=== PATIENT | male | born 1960 | race Caucasian/White ===

== ENCOUNTER → 2019-02-20 07:40 | Outpatient (CLI) | payer BC, SELFPAY ==
--- NOTE | 2019-02-20 07:46 | CT_ITS ---
STUDY: CT ABDOMEN AND PELVIS WITH CONTRAST REASON FOR EXAM: Male, 58 years old. Abdominal pain. RADIATION DOSAGE (If Supplied By Facility): CTDIvol = ( 14.61 ) mGy, DLP = ( 1033.76 ) mGycm TECHNIQUE: Transaxial images were obtained from the dome of the diaphragm to the symphysis pubis with oral contrast. 100 IV/Oral Isovue 300 was administered. Sagittal and coronal images were reconstructed. Individualized dose optimization techniques were used for this CT. COMPARISON: None. FINDINGS: The visualized lung bases are unremarkable. The visualized portions of the heart are within normal limits. Normal liver. The gallbladder is contracted with a single gallstone. Normal spleen. Normal pancreas. Normal bilateral adrenal glands. Normal right kidney. Normal left kidney. Normal visualized stomach. Normal small intestine. There are multiple colonic diverticula consistent with diverticulosis. The appendix is visualized and appears normal. Normal abdominal aorta. Normal inferior vena cava. Normal retroperitoneum. Normal urinary bladder. There is enlargement of the prostate gland. Normal abdominal wall. Normal osseous structures. CT/Abdomen/Pelvis WITH Contrast IMPRESSION: Cholelithiasis. Diverticulosis. Electronically Signed: Jaspal Dumont MD at 16:59 EDT , Service support ,
== END ==
DX: R10.9 Unspecified abdominal pain (principal)
CPT/HCPCS: 74177; Q9967

== ENCOUNTER → 2020-02-11 09:10 | Outpatient (CLI) | payer BC, SELFPAY ==
--- NOTE | 2020-02-11 09:29 | NM_ITS ---
CLINICAL: 59-year-old male with reported history of right upper quadrant abdominal pain. RADIONUCLIDE HEPATOBILIARY SCINTIGRAPHY COMPARISON: None available FINDINGS: Following the intravenous administration of 5.3 mCi of 99m Tc Mebrofenin, hepatobiliary images reveal: 1. Relatively prompt and homogeneous radiopharmaceutical concentration is noted by a normal sized liver. No parenchymal defects are identified. 2. Gallbladder activity is identified at 100 minutes post radiopharmaceutical administration. 3. Small intestinal tract is observed at 15 minutes following tracer injection. 4. Washout of the radiopharmaceutical by the hepatic parenchyma appears qualitatively normal. Cholecystokinin (0.02 ug/kg) was administered intravenously over a 30-minute period. The post CCK gallbladder ejection fraction calculated at 21 minutes following Cholecystokinin administration was noted to be 77.0 % (normal greater than 35%). During 30 minutes of post CCK imaging, there is no scintigraphic evidence of reflux of the radiotracer into the common hepatic duct or refilling of the gallbladder. NM/Hepatobilliary Img w/Pharm Int IMPRESSION: 1. A gallbladder ejection fraction calculated to be greater than 35% following the administration of Cholecystokinin makes the probability of functional hepatobiliary disease (gallbladder and/or sphincter of Oddi dyskinesia) and/or organic hepatobiliary disease (chronic acalculous cholecystitis and/or cystic duct syndrome) to be low. (Sergei Brand et al, Journal of Nuclear Medicine 32:1695, 1991). Electronically Signed: Roberto Viera DO at 21:58 EDT Tel , Service support ,
== END ==
DX: R10.11 Right upper quadrant pain (principal)
CPT/HCPCS: 78227; A9537; J2805

== ENCOUNTER → 2020-06-10 10:18 | Outpatient (CLI) | payer BC, SELFPAY | DX: R53.83 Other fatigue (principal); D75.1 Secondary polycythemia | CPT/HCPCS: 95806 ==

== ENCOUNTER 2024-02-16 07:02 | Day surgery (SDC) | payer BC, SELFPAY ==
[2024-02-16] VITALS (7 sets, daily range): BP systolic 96–135; BP diastolic 46–80; PULSE 77–89; RESP 16; TEMP 36.2–36.9; O2SAT 93–97; BMI 27.0
[2024-02-16] MEDS: Lactated Ringers 1,000 ML 15 ML IV (07:47)
--- NOTE | 2024-02-16 08:00 | IMM_PTH ---
PATIENT: CONSUELO FERRER [place] [facility] [id number] AGE/SX: 63/M ROOM: RE02/16/[address]: Dr. Nikita Vazquez MD : 1960 BED: DIS: 02/16/2024 SPEC #: [id number] RECD: 02/16/24 14:28 STATUS: MARINA REMary Ann #: [id number] FLAVIA: 02/16/24 08:[address]: Nikita Vazquez DEPT: IMMUNOHISTOCHEMISTRY RECD BY: Robb Arevalo ENTERED: 02/16/24 14:30 SP TYPE: IMMUNO OTHR DR: Kaela Lezama, SEQUINS SPOOLER-C Tissues: A - Stomach, NOS Procedures: H Pylori (initial) PHYSICIAN & INSTITUTION [place] [id number] SPECIMEN INFORMATION: Tissue Source: A- Antrum Clinical Info: Rectal bleeding, Bloating, Diverticular disease, Heartburn symptom Specimen Number: [id number] CPT code: 33663 METHODOLOGY: Deparaffinized sections of prefer/formalin-fixed tissue or PAP/DQ stained slides are incubated with monoclonal/polyclonal antibodies/oligonucleotide probes. Localization is made via biotin free immunoperoxidase method. Appropriate controls are performed and reacted as expected. Results on target cell population are indicated in the following table: RESULTS: ANTIBODY / CLONE RESULT Block A H Pylori (polyclonal) negative These tests were developed and their performance characteristics determined by [facility]. They may not have been cleared or approved by the U.S. Food and Drug Administration. The FDA has determined that such clearance or approval is not necessary. The above immunohistochemical/dualISH markers are ordered and reviewed by the Pathologist. INTERPRETATION: A. Antrum, biopsy: Negative for Helicobacter pylori organisms. KIANA/ 02/17/24
--- NOTE | 2024-02-16 08:00 | EGD_PTH ---
PATIENT: CONSUELO FERRER LOC: [facility] [place] U#:[id number] AGE/SX: 63/M ROOM: RE02/16/[address]: Dr. Nikita Vazquez MD : 1960 BED: DIS: 02/16/2024 SPEC #: [id number] RECD: 02/16/24 09:38 STATUS: MARINA CHANDLER #: [id number] FLAVIA: 02/16/24 08:[address]: Nikita Vazquez DEPT: SURGICAL PATHOLOGY RECD BY: Jessica Camejo ENTERED: 02/16/24 13:28 SP TYPE: EGD BIOPSY OTHR DR: Kaela Lezama, MID WIFE-C Tissues: A - Gastric mucous membrane B - Esophagus, NOS C - Esophagus, NOS D - Gastric mucous membrane E - Gastric fundus F - Esophagus, NOS G - Esophagus, NOS Procedures: Special Stain Group II Surgery Specimen Level IV Alcian Blue/PAS (control) HEADER OPERATION: Colonoscopy, EGD biopsy, Polypectomy PRE-OP DIAGNOSIS: Rectal bleeding, Bloating, Diverticular disease, Heartburn symptom TISSUE SUBMITTED: A- Antrum biopsy, B- Greater curvature polyp biopsy, C- Greater curvature mucosa biopsy, D- Gastric body polyps x3, E- Fundus polyp biopsy, F- Gastroesophageal junction mass biopsy, G- Esophageal mucosa biopsy MICROSCOPIC DIAGNOSIS A. Gastric antrum, biopsy: Chronic gastritis. See comment. B. Greater curvature of stomach polyp, biopsy: Polypoid fragment of benign gastric mucosa. See comment. C. Greater curvature of stomach biopsy: Chronic gastritis. D. Gastric body polyps, biopsy: Fragments of fundic gland polyps E. Gastric fundus polyp, biopsy: Chronic gastritis. See comment. F. Gastroesophageal junction mass, biopsy: Gastroesophageal junctional mucosa with chronic inflammation. No evidence of goblet cell metaplasia. No evidence of malignancy. See comment. G. Esophageal mucosa, biopsy: Fragments of benign squamous mucosa with focal changes of reflux. AM/mr 02/17/24 COMMENT A. The results of immunohistochemistry for Helicobacter pylori will be reported separately ([id number]). B. No features of fundic gland polyp are seen and there is no evidence of hyperplasia. Clinical correlation is suggested. E. No evidence of fundic gland polyp are identified. Clinical correlation is suggested. F. Alcian blue/PAS stain with matched control supports the above diagnosis. Case has been reviewed in consultation with Dr. Moreira who concurs with the above diagnosis. IDC:SJ MICROSCOPIC DESCRIPTION Slides are reviewed. GROSS DESCRIPTION A. Received in fixative is one container labeled with the patient's name and designated Antrum biopsy. The specimen consists of one irregular fragment of light willett soft tissue that measures 0.5 x 0.4 x 0.1 cm. The specimen is totally submitted in one cassette. B. Received in fixative is one container labeled with the patient's name and designated Greater curvature polyp biopsy. The specimen consists of one irregular fragment of light willett soft tissue that measures 0.4 x 0.3 x 0.1 cm. The specimen is totally submitted in one cassette. C. Received in fixative is one container labeled with the patient's name and designated Greater curvature mucosa biopsy. The specimen consists of one irregular fragment of light willett soft tissue that measures 0.4 x 0.3 x 0.1 cm. The specimen is totally submitted in one cassette. D. Received in fixative is one container labeled with the patient's name and designated Gastric body polyps. The specimen consists of multiple irregular fragments of light willett soft tissue that in aggregate measure 1.8 x 0.5 x 0.3 cm. The specimen is totally submitted in one cassette. E. Received in fixative is one container labeled with the patient's name and designated Fundus polyp biopsy. The specimen consists of one irregular fragment of light willett soft tissue that measures 0.4 x 0.4 x 0.1 cm. The specimen is totally submitted in one cassette. F. Received in fixative is one container labeled with the patient's name and designated GE junction mass biopsy. The specimen consists of multiple irregular fragments of light willett soft tissue that in aggregate measure 1.0 x 0.3 x 0.1 cm. The specimen is totally submitted in one cassette. G. Received in fixative is one container labeled with the patient's name and designated Esophageal mucosa biopsy. The specimen consists of two irregular fragments of light willett soft tissue that in aggregate measure 0.6 x 0.3 x 0.1 cm. The specimen is totally submitted in one cassette. NORIS/ 02/16/24 TC:3 CPT: 46320d3,91646
--- NOTE | 2024-02-16 08:13 | HP.PCM_ITS ---
History and Physical Date of Admission: 02/16/24 Date of Service: 12/27/23 MR#: [id number] Acct: [id number] Name: CONSUELO CORREA Rep #: [id number] : 1960 Provider: Dr. 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 Nikita Vazquez MD) Abnormal CT of the abdomen Anxiety Asthma Back problem Bloating Diverticular disease Epigastric pain Erectile dysfunction Gastroparesis Rectal bleeding SOB (shortness of breath) Surgical History (Updated 12/27/23 @ 09:02 by Shira Mejia) S/P hernia repair S/P laparoscopic cholecystectomy Family History (Updated 12/27/23 @ 09:02 by Shira Mejia) Brother Cancer CVA (cerebral vascular accident)Son Thyroid disorder Social History (Updated 12/27/23 @ 09:02 by Shira Mejia) Smoking Status: Former smoker alcohol intake: never HPI HPI HPI: Patient is a 63-year-old male who presents for need to schedule diagnostic colonoscopy secondary to recent bleeding. They are referred for surgical c onsultation from Dr. Johnson. Mr. Correa shares that 2 weeks ago he passed blood in his stool or a couple of bowel movements. He notes that this was bright red blood per rectum and seem to spontaneously resolve. When he noted this to his primary care provider he underwent CT imaging and states that there was some concern for some thickening of his stomach. He does have a history of hemorrhoids, but shares that his PCP did not believe this was hemorrhoids as they did a digital rectal exam and did not feel anything. He denies any bulging or pain or itching associated with the bleeding episode. Along with this he denies experiencing any lightheadedness or weakness and this is in keeping with a hemoglobin checked at the time of 17.2. He also notes that his bowel movements occur rather regularly and he experiences 1 or more bowel movements daily with minimal straining. He also confirms that his toilet time is minimal and that he is in and out of the bathroom within a minute or so. Patient has had prior colonoscopy in May 2023. The results of this prior scope were sigmoid diverticulosis and otherwise unremarkable findings leading to recommendation for 10-year follow-up. Patient has no personal history of colon cancer, inflammatory bowel disease, or diverticulitis. However, he comments that he did have some lower abdominal pain when he was being examined by his primary around the time of his bleeding and CT imaging obtained 12/05/2023 was read by radiology as concerning for possible acute sigmoid diverticulitis due to some infiltration of the sigmoid mesentery. Patient has no family history of colon cancer, inflammatory bowel disease, or diverticulitis. The patient's weight is not stable and he shares that he has gained 20 pounds in the past couple of years. He attributes some of this weight gain to a contest at a local restaurant which he 1 and his prize was 52 pieces of pie (1/week for the next year). The patient is not prescribed anticoagulants/blood thinners. Relevant prior abdominal surgical history includes: Hernia repair of the left groin in 2015 via an open approach and cholecystectomy in 2019 Patient does have a significant history of GERD/heartburn, but suggested that his primary difficulty is with heartburn. He estimates a frequency of approximately 1 time per week with the symptoms. He denies any use of PPI medications but takes Tums as needed. He also suggest that he tried to take himself off of caffeine and instead substituted tea but found that his symptoms were worse. He does intentionally try to avoid eating spicy foods as triggers. He generally takes dinner between 4 and 5 in the afternoon and then is in bed by 8 PM. He states that he is using some propping of his head to help with symptoms and makes mention of the fact that he has a sleep number bed that he elevates to a degree. He repeatedly makes mention of the uncomfortable fact that he has had 6-8 years of bloating. He notes that an EGD was attempted in 2020 but could not be completed because his stomach was full of food. Thus he was placed on a liquid diet and the procedure was repeated on 08/12/2021. He reportedly underwent esophageal dilation during this procedure due to complaints of dysphagia and those complaints have now disappeared. However, he has had a lingering diagnosis of gastroparesis. A gastric emptying study was performed on 07/28/2021 and showed normal gastric emptying, but he states that he has googled his symptoms and they do seem to be consistent with this diagnosis. At the successful EGD in 2020 Mr. Correa underwent biopsies of the GE junction which confirmed evidence of chronic inflammation but no Raymond's esophagus was identified. Lastly, on 08/06/2021 Mr. Correa underwent a upper GI procedure that showed moderate reflux but was otherwise normal. [] ROS General General: No weight change, appetite, fatigue, colon cancer, breast cancer or weakness HEENT HEENT: No difficulty swallowing, eye injury, eye surgery, swollen glands or hoarseness Endo Endocrine: No thyroid disease, diabetes mellitus, thyroid cancer, Hair loss, heat intolerance or cold intolerance Skin Skin: No rash or changing moles Breast Breast: No left breast lump, right breast lump, nipple discharge, breast pain, abnormal mammogram, abnormal US or breast enlargement Musc Musculoskeletal: Yes back problems; No arthritis, rheumatoid arthritis, gout or joint pain Cardio Cardiovascular: No murmur, pacemaker, heart disease, atrial fibrillation, high blood pressure, heart attack, heart stent, palpitations, shortness of breat with exertion or chest pain Psych Psychiatric: Yes anxiety; No depression or hearing voices Resp Respiratory: Yes shortness of breath, Yes sleep apnea, Yes cough, No COPD, Yes asthma, No emphysema and No wheezing Gastro Gastrointestinal: Yes abdominal pain, No nausea or vomiting, No diarrhea, No constipation, Yes blood in stool, Yes acid reflux, No hemorrhoids, No ulcers, No gallbladder problem and No black,tarry stools Suleiman Hematologic: No blood thinners, No blood disorders, No bleeding, No anemia and No blood clots Neuro Neurologic: No system reviewed and no additional complaints, except as documented, No as per HPI, No abnormal gait, No abnormal hearing, No abnormal movements, No abnormal speech, No behavioral changes, No burning sensations, No confusion, No convulsions, No disequilibrium, No dizziness, No localized weakness, No frequent falls, No headache(s), No lack of coordination, No loss of vision, No memory loss, No numbness, No other visual disturbances, No radicular pain, No restless legs, No sensory deficit, No syncope, No tingling, No tremor(s), No weakness and No other Exam Const General: cooperative, comfortable, no acute distress and anxious Orientation: alert, awake and oriented x3 Resp Effort & Inspection: normal respiratory effort GI Other: Overweight, no visible scars, nondistended, soft, initially tender to palpation in the right upper quadrant, but this seemed to dissipate with a exam?there was no other tenderness despite palpation of the remaining 3 abdominal quadrants in the epigastrium Assessment and Plan Assessment and Plan (1) Rectal bleeding: Status: Acute Comment: Patient reports for evaluation of what appears to been self-limited rectal ble eding 2 weeks ago. It is difficult to clearly determine a cause based on patient's history as the only notable thing he remarks of was some exceptional coughing around the time that this occurred. He does not give a history consistent?necessarily?with hemorrhoid disease, but his report of the bleeding following passage of stool is suggestive. Alternatively, he does have a known history of diverticulosis and radiology observed some changes within the colonic mesentery suggestive of possible inflammation so this could have represented a diverticular bleed. It is also apparent that this is hematochezia we are addressing so this is most likely a lower GI source, but there has been some mention of gastritis. Lastly considerations such as infectious colitis, ischemic colitis, or angiodysplasia also remain part of the differential. It is noteworthy that he was not symptomatic from this bleeding and his hemoglobin was well within normal limits when checked. Plan: ? Given that there are no present complaints of bleeding I would like to get him scheduled for a diagnostic colonoscopy and our first mutually available date, yet, I see it is prudent to wait 6 weeks from the date of his CT scan to avoid insufflating a inflamed colon. We will plan to proceed with a 2-day bowel prep the patient is made aware that he will require a crude oil driver the day of the pr ocedure. (2) Bloating: Status: Acute Comment: Patient describes 6 to 8 years of bloating symptoms. He believes that this may have developed following his gallbladder removal. Is not apparent to me that he has been tested for helical back to pylori infection today would like to rule this out as a potential cause for his symptoms. He appears rather fixated on a diagnosis of gastroparesis, but when this was objectively evaluated with gastric emptying in July 2021 it was unequivocally normal. Thus I recommend proceeding with diagnostic EGD with biopsies. Plan: Diagnostic EGD (3) Diverticular disease: Status: Acute Comment: Patient with established diagnosis of diverticulosis per colonoscopy May 2023. There is also question of inflammatory change about the diverticula on CT imaging from 12/05/2023. Mr. Correa has a completely benign exam today, but states that at the time of his CT imaging he did have some lower abdominal quadrant tenderness. Therefore, I can only conclude based on his history that there was a potential for some colitis at that time (perhaps diverticulitis?). Based on this assessment recommend waiting 6 weeks before proceeding with diagnostic colonoscopy as patient is not having any further bleeding at present. Plan: Diagnostic colonoscopy (4) Heartburn symptom: Status: Acute Comment: Patient with history of GERD and heartburn symptoms, but states that heartburn predominates. EGD performed August 2021 showed some inflammation within the esophagus but no changes consistent with Raymond's esophagus. Reflux was also noted on an upper GI study performed a month prior. Patient manages the symptoms right now with just as needed Tums. I have suggested that he begin looking for ways to cut out caffeine, regularly prop his head at night, work towards some weight loss (especially that weight gained with by eating the last year), and briefed him that we may have to consider use of a PPI medication?tiki ndjonas on what is found with his planned EGD. Plan: ? Lifestyle modifications as above ? Diagnostic EGD planned in conjunction with diagnostic colonoscopy I have examined the patient and the H&P has been reviewed. There are no clinical changes since date of exam. Patient confirms that he has not had any further bleeding per rectum. He also confirms that he has had ongoing issues with the bloating and burping. He does confirm that he completed a bowel prep for today's procedure as well. Thus we will plan to proceed to endoscopy suite for upper and lower endoscopy. Given his initial complaint for bleeding he has consented for possible hemorrhoid banding in addition to the standard consent.
--- NOTE | 2024-02-16 09:33 | OP.CCLET_ITS ---
02/16/2024 Minh Lujan Re : Upper GI endoscopy procedure for Eric Lezama This procedure was performed on February. My impressions and recommendations are as follows: Impressions : - No gross lesions in the duodenal bulb, in the first portion of the duodenum and in the second portion of the duodenum. No specimens collected. - Erythematous mucosa in the antrum. Biopsied. - Multiple gastric polyps. Resected and retrieved. - Nodular mucosa in the greater curvature of the stomach. Biopsied. - Multiple gastric polyps. Resected and retrieved. - A single gastric polyp. Biopsied. - Medium-sized hiatal hernia. No specimens collected. - Z-line irregular, 38 cm from the incisors. 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 Biopsied. 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 No specimens collected. - Esophageal mucosal changes suspicious for eosinophilic esophagitis. Biopsied. - The examination was otherwise normal. Recommendations : - Discharge patient to home (via wheelchair). - Resume previous diet today. - Continue present medications. - Await pathology results. - Telephone my office for pathology results in 1 week. My findings are described in the full procedure note, which is enclosed. If I can be of further assistance, please feel free to contact me at Doctor phone number(s): , Work: . Sincerely, Nikita Vazquez MD 02/16/2024 9:31:52 AM This report has been signed electronically.
--- NOTE | 2024-02-16 09:33 | OP.EGD_ITS ---
Patient Name: Eric Fung Procedure Date: 02/16/2024 7:56 AM Date of : 1960 Age: 63 Procedure: Upper GI endoscopy Indications: Heartburn, Abdominal bloating Providers: Nikita Vazquez MD Referring MD: Minh Lujan Medicines: See the Anesthesia note for documentation of the administered medications Patient Profile: Refer to note in patient chart for documentation of history and physical. Complications: No immediate complications. Estimated blood loss: Minimal. Procedure: Pre-Anesthesia Assessment: - The heart rate, respiratory rate, oxygen saturations, blood pressure, adequacy of pulmonary ventilation, and response to care were monitored throughout the procedure. After obtaining informed consent, the endoscope was passed under direct vision. Throughout the procedure, the patient's blood pressure, pulse, and oxygen saturations were monitored continuously. The pediatric colonoscope was introduced through the mouth, and advanced to the second part of duodenum. The upper GI endoscopy was somewhat difficult due to the patient's oxygen desaturation. Successful completion of the procedure was aided by administering oxygen. The patient tolerated the procedure well. Scope In: 8:24:09 AM Scope Out: 8:52:09 AM Total Procedure Duration Time 0 hours 28 minutes 0 seconds Findings: No gross lesions were noted in the duodenal bulb, in the first portion of the duodenum and in the second portion of the duodenum. No biopsies or other specimens were collected for this exam. Localized mildly erythematous mucosa without bleeding was found in the gastric antrum. Biopsies were taken with a cold forceps for histology. Estimated blood loss was minimal. Multiple 5 mm semi-pedunculated polyps with no bleeding and no stigmata of recent bleeding were found on the greater curvature of the stomach. The polyp was removed with a hot snare. Resection and retrieval were complete using a suction (via the working channel). Localized nodular mucosa was found on the greater curvature of the stomach. Biopsies were taken with a cold forceps for histology. Estimated blood loss was minimal. Multiple 3 mm semi-pedunculated polyps with no bleeding and no stigmata of recent bleeding were found in the gastric body. The polyp was removed with a hot snare. Resection and retrieval were complete. Estimated blood loss was minimal. A single 2 mm sessile polyp with no bleeding and no stigmata of recent bleeding was found in the gastric fundus. Biopsies were taken with a cold forceps for histology. Estimated blood loss was minimal. A medium-sized hiatal hernia was present. No biopsies or other specimens were collected for this exam. The Z-line was irregular and was found 38 cm from the incisors. A small, fungating mass with no bleeding and no stigmata of recent bleeding was found at the gastroesophageal junction, 38 cm from the incisors. The mass was non-obstructing and not circumferential. Estimated blood loss was minimal. Biopsies were taken with a cold forceps for histology. A medium-sized, submucosal, non-circumferential mass with no bleeding and no stigmata of recent bleeding was found in the gastric fundus. No biopsies or other specimens were collected for this exam. Mucosal changes including ringed esophagus and white plaques were found in the distal esophagus. Biopsies were taken with a cold forceps for histology. Estimated blood loss was minimal. The exam was otherwise without abnormality. Impression: - No gross lesions in the duodenal bulb, in the first portion of the duodenum and in the second portion of the duodenum. No specimens collected. - Erythematous mucosa in the antrum. Biopsied. - Multiple gastric polyps. Resected and retrieved. - Nodular mucosa in the greater curvature of the stomach. Biopsied. - Multiple gastric polyps. Resected and retrieved. - A single gastric polyp. Biopsied. - Medium-sized hiatal hernia. No specimens collected. - Z-line irregular, 38 cm from the incisors. 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 Biopsied. 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 No specimens collected. - Esophageal mucosal changes suspicious for eosinophilic esophagitis. Biopsied. - The examination was otherwise normal. Recommendation: - Discharge patient to home (via wheelchair). - Resume previous diet today. - Continue present medications. - Await pathology results. - Telephone my office for pathology results in 1 week. Procedure Code(s): --- Professional --- 63712, Esophagogastroduodenoscopy, flexible, transoral; with removal of tumor(s), polyp(s), or other lesion(s) by snare technique [id number], 59, Esophagogastroduodenoscopy, flexible, transoral; with biopsy, single or multiple Diagnosis Code(s): --- Professional --- K31.89, Other diseases of stomach and duodenum K31.7, Polyp of stomach and duodenum K44.9, Diaphragmatic hernia without obstruction or gangrene K22.89, Other specified disease of esophagus D49.0, Neoplasm of unspecified behavior of digestive system R12, Heartburn R14.0, Abdominal distension (gaseous) CPT copyright 2021 [employer]. All rights reserved. The codes documented in this report are preliminary and upon service worker review may be revised to meet current compliance requirements. Nikita Vazquez MD 02/16/2024 9:31:52 AM This report has been signed electronically. Number of Addenda: 0 Note Initiated On: 02/16/2024 7:56 AM
--- NOTE | 2024-02-16 09:36 | OP.COLON_ITS ---
Patient Name: Eric Fung Procedure Date: 02/16/2024 8:52 AM Date of : 1960 Age: 63 Procedure: Colonoscopy Indications: Hematochezia Providers: Nikita Vazquez MD Referring MD: Kaela Lezama, Motor Vehicles Supervisor-c Medicines: See the Anesthesia note for documentation of the administered medications Patient Profile: Refer to note in patient chart for documentation of history and physical. Last Colonoscopy: 1 year ago. Complications: No immediate complications. Estimated blood loss: None. Procedure: Pre-Anesthesia Assessment: - The heart rate, respiratory rate, oxygen saturations, blood pressure, adequacy of pulmonary ventilation, and response to care were monitored throughout the procedure. - The heart rate, respiratory rate, oxygen saturations, blood pressure, adequacy of pulmonary ventilation, and response to care were monitored throughout the procedure. After I obtained informed consent, the scope was passed under direct vision. Throughout the procedure, the patient's blood pressure, pulse, and oxygen saturations were monitored continuously. The pediatric colonoscope was introduced through the anus and advanced to the cecum, identified by appendiceal orifice and ileocecal valve. The colonoscopy was performed without difficulty. The patient tolerated the procedure well. The quality of the bowel preparation was adequate to identify polyps. Scope In: 8:54:01 AM Scope Withdrawal Time 0 hours 15 minutes 33 seconds Scope Out: 9:14:09 AM Total Procedure Duration Time 0 hours 20 minutes 8 seconds Findings: The perianal and digital rectal examinations were normal. Pertinent negatives include normal sphincter tone. Multiple small and large-mouthed diverticula were found in the sigmoid colon. No biopsies or other specimens were collected for this exam. Internal hemorrhoids were found during retroflexion. The hemorrhoids were mild and Grade I (internal hemorrhoids that do not prolapse). No biopsies or other specimens were collected for this exam. Impression: - Diverticulosis in the sigmoid colon. No specimens collected. - Internal hemorrhoids. No specimens collected. Recommendation: - Discharge patient to home (via wheelchair). - High fiber diet today. - Continue present medications. - Repeat colonoscopy in 10 years for screening purposes. - Telephone my office for study results in 1 week. Procedure Code(s): --- Professional --- 92848, Colonoscopy, flexible; diagnostic, including collection of specimen(s) by brushing or washing, when performed (separate procedure) Diagnosis Code(s): --- Professional --- K64.0, First degree hemorrhoids K92.1, Melena (includes Hematochezia) K57.30, Diverticulosis of large intestine without perforation or abscess without bleeding CPT copyright 2021 [employer]. All rights reserved. The codes documented in this report are preliminary and upon dry cleaner review may be revised to meet current compliance requirements. Nikita Vazquez MD 02/16/2024 9:36:15 AM This report has been signed electronically. Number of Addenda: 0 Note Initiated On: 02/16/2024 8:52 AM
--- NOTE | 2024-02-16 09:36 | OP.CCLET_ITS ---
02/16/2024 Minh Lujan Re : Colonoscopy procedure for Eric Fung Dear Teja This procedure was performed on February. My impressions and recommendations are as follows: Impressions : - Diverticulosis in the sigmoid colon. No specimens collected. - Internal hemorrhoids. No specimens collected. Recommendations : - Discharge patient to home (via wheelchair). - High fiber diet today. - Continue present medications. - Repeat colonoscopy in 10 years for screening purposes. - Telephone my office for study results in 1 week. My findings are described in the full procedure note, which is enclosed. If I can be of further assistance, please feel free to contact me at Doctor phone number(s): , Work: . Sincerely, Nikita Vazquez MD 02/16/2024 9:36:15 AM This report has been signed electronically.
== END 2024-02-16 10:05 | disposition home or self-care (01) ==
LOC: SDC 07:13 → AC 07:13
PROVIDERS: PCP Nurse Practitioner Family; Referring Provider Nurse Practitioner Family; Visit Provider Surgery
PROC: 0DJD8ZZ Inspection of Lower Intestinal Tract, Via Natural or Artificial Opening Endoscopic (ICD-10-PCS; CPT 45378; principal; 2024-02-16 07:55)
DX: K29.50 Unspecified chronic gastritis without bleeding (principal); K62.5 Hemorrhage of anus and rectum; Z87.891 Personal history of nicotine dependence; K64.0 First degree hemorrhoids; K44.9 Diaphragmatic hernia without obstruction or gangrene; K31.7 Polyp of stomach and duodenum; J45.909 Unspecified asthma, uncomplicated; K57.30 Diverticulosis of large intestine without perforation or abscess without bleeding; K21.00 Gastro-esophageal reflux disease with esophagitis, without bleeding; Z87.19 Personal history of other diseases of the digestive system
CPT/HCPCS: 43251; 43239; 45378; 88305; 88313; 88342; J7120; J2405